=== PATIENT | male | born 1935 | race Caucasian/White ===

== ENCOUNTER 2019-04-20 23:13 | Outpatient (CLI) | payer MEDICARE, OTHER | END 2019-04-20 23:14 | disposition short-term general hospital (02) | LOC: EMS 23:13 | PROVIDERS: ATTEND Surgery | DX: R10.32 Left lower quadrant pain (principal); R05 Cough | CPT/HCPCS: A0425; A0427; A0888 ==

== ENCOUNTER 2021-10-06 09:40 | Outpatient (CLI) | payer MEDICARE, OTHER ==
--- NOTE | 2021-10-06 16:43 | CONSULTATION NOTE ---
Palliative Care Consultation - Referral Referring Provider: Dr. King Jerez Time of Visit: [id number] Referral setting: Home Referral Reason: COPD/Interstital pulmonary Disease/Advanced Care Planning - Information Sources Records reviewed: Previous records reviewed History/Review of Systems obtained from: Patient, Family (spouse, Stephanie) Exam limitations: No limitations - History of Present Illness Brief History of Present Illness: This is a megan and articulate 86-year-old gentleman who was seen and evaluated today in his home for initial palliative care consultation with his spouse, Stephanie present due to COPD, interstitial pulmonary disease and advanced care planning. Provider wore N95 mask. Patient was diagnosed with COPD and pulmonary fibrosis in approximately April 2016. He was having increased shortness of breath and it was noted on bronchoscopy. There is also reports that there is a deposit in his left lower lobe. He grew up in [place] [facility] whether are often dust storms as well as attending college in [place] and this may have been a contributing factor for his diagnoses. The time of diagnosis he then was placed on supplemental oxygen therapy and had been on 2 L for approximately 5 years. Since June 2021 due to increased exercise shortness of breath on exertion he increased to 3 L at rest and will turn up to 4 L with increased activity. He finds it he is more sedentary and is no longer able to do some of the tasks that he has previously enjoyed. He finds that he is getting winded more easily especially when doing self-care tasks such as shaving or bathing where he does not have oxygen in place. He is on Pred minestrone 10 mg daily. He does have a history of intermittent diarrhea which she manages with 1 Imodium daily. He has noted this is increased in his particular certain foods especially tomatoes and potatoes. He defecates on a daily basis and denies abdominal discomfort. Reports that his mood is stable on citalopram 30 mg daily. No changes in his appetite. Patient is seen sitting up in bed with his supplemental oxygen in place, well groomed. Able to speak in full sentences without becoming short of breath. Recent power outage on [facility] did not affect the patient and spouse in regards to his supplemental oxygen as the neighbor has provided a generator for their use. Color Paste Mixing Supervisor: Dr. Fili Lopez Medical/Surgical History - Past Medical History Cardiovascular: reports: High cholesterol, Atrial fibrillation (Paroxysmal Atrial fibrilation), Other (Pulmonary HTN) Respiratory: reports: COPD, Other (Interstitial pulmonary disease) Neuro: None Endocrine/Autoimmune: reports: None GI: reports: Other (Diarrhea) : reports: Benign prostate hypertrophy, Other (CKD stage III) HEENT: reports: Macular degeneration (mild nonexudative age related, OU), Other (Partial retianl artery occlusion OD) Psych: reports: Depression Musculoskeletal: reports: None - Past Surgical History HEENT: reports: Cataracts - Substance History Use: Uses substance without health or social issues: NONE (Former tobacco abuse quit 1997) Social History - Living Situation Living arrangement: At home Living Situation: With spouse/s.o. Support System: The patient and his spouse, Stephanie Will be 59 years in November 2021. They have 3 children together, 1 son and 2 daughters. Their son resides in [place] and will be visiting for [employer]. They have a daughter who resides in [place] and has a masters in art. There her last daughter, and resides in [facility]. 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 He has had former students come in the last year to visit given his declining health. The patient and spouse relocated to [facility] approximately 21 years ago. They have 2 very supportive neighbors who look after them. The patient in enjoys cooking and this is still a pastime he continues to pursue. 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 The couple have a friendly Weimaraner in the home. Family History - Family History Family History: Mother: , Alzheimer's Disease, Father: , [place], Sister: , Alzheimer's Disease Family History Comment/Other: Sister with early onset dementia Medications/Allergies - Medications Home Medications: Ambulatory Orders Medication Instructions Recorded Confirmed Arformoterol Tartrate 1 unit INH BID 10/12/21 10/12/21 Aspirin [Gama] 325 mg PO DAILY 10/12/21 10/12/21 Citalopram Hydrobromide [Celexa] 1.5 tab PO DAILY 10/12/21 10/12/21 Loperamide [Imodium] 1 cap PO DAILY 10/12/21 10/12/21 Revefenacin [Yupelri] 3 ml INH DAILY 10/12/21 10/12/21 Tamsulosin HCl [Flomax] 1 cap PO BID 10/12/21 10/12/21 predniSONE [Deltasone] 10 mg PO DAILY 10/12/21 10/12/21 - Allergies Allergies/Adverse Reactions: Allergies Allergy/AdvReac Type Severity Reaction Status Date / Time No Known Drug Allergies Allergy Verified 10/12/21 20:42 Review of Systems - Constitutional Constitutional: reports: Fatigue. denies: Fever, Poor appetite - Eyes Eyes: reports: Vision loss (right eye), Corrective lenses - Ears, Nose & Throat Ears, Nose & Throat: denies: Dentures - Cardiovascular Cardiovascular: reports: Exertional dyspnea, Decr. exercise tolerance. denies: Edema - Respiratory Respiratory: reports: Cough, SOB with exertion - Gastrointestinal Gastrointestinal: reports: Diarrhea (see HPI), Good appetite. denies: Abdominal pain, Constipation, Vomiting - Genitourinary Genitourinary: denies: Dysuria - Musculoskeletal Musculoskeletal: denies: Joint pain, Assistive devices, Transfer issues - Integumentary Integumentary: reports: Dryness - Neurological Neurological: denies: Headache, Memory problems - Psychiatric Psychiatric: reports: Depression (controlled) - Endocrine Endocrine: denies: Hypothyroidism - All Other Systems All Other Systems: reports: Reviewed and negative Physical Exam - Vital Signs Pulse Rate: 54 O2 Saturation: 94 (3L via NC) Blood Pressure: 127/67 (left wrist) - Physical Exam General Appearance: positive: No acute distress, Alert, Other (thin, well groomed) Eyes Bilateral: positive: Normal inspection, Other (+corrective lenses) ENT: positive: No signs of dehydration. negative: Other (dentures) Neck: positive: Trachea midline, Other (thin) Cardiovascular: positive: Regular rate & rhythm, Systolic murmur (1/6 CARYN) Respiratory: positive: No respiratory distress, Breath sounds nml, Other (supplemented oxygen in place, able to speak in full sentances without pausing for breath) Abdomen: positive: Non-tender, Soft, Nml bowel sounds Skin: positive: Dryness Extremities: positive: No pedal edema Neurologic/Psychiatric: positive: Oriented x3, Mood/affect nml Palliative Care - POLST Patient has POLST: Yes POLST Status: DNR, Comfort Measures Pain: No pain Depression: Mild (1-3) (controlled) Feelings of wellbeing/Perceived Quality of Life: Fair Sleep: Sleeps well Constipation: No Performance Status: Patient is ambulatory without assistive device. Is practicing energy conservation due to decreased exercise tolerance. No history of falls. Able to assist with meal preparation and self-care with bathing and dressing. - Palliative Care Discussion: The patient is appreciating that more mundane tasks such as showering or shaving is contributing to increased energy expenditure resulting in increased fatigue which has been "eye-opening" for him. In the last 6 to 8 weeks he has perceived a loss in his ability to perform tasks such as his gardening that he took great pride and that he is no longer able to perform has he becomes quite fatigued and winded. He and his spouse met with his primary care provider at [facility] from his daughter for a discussion regarding hospice. Given the patient's declining trajectory was deemed most appropriate to be on palliative care services versus hospice at the present time. In reflection regarding hospice services, this is something that both the patient and spouse would wish to transition to when the time is appropriate in the future. The patient perceives time is passing slowly before him and he still finds pleasure in the day. When transitioning to hospice he ultimately wishes to have a comfortable and dignified at home. Impression and Recommendations - Palliative Care Impression: This is a megan 86-year-old gentleman with a history of COPD, interstitial pulmonary disease on supplemental oxygen with increasing functional decline due to his pulmonary diagnoses. He is practicing energy conservation and recognizes his slow decline in his functionality. He wishes to focus on comfort measures within the home environment with a transition to hospice when medically appropriate. Palliative care to provide care coordination, support within the home, symptom management and anticipatory guidance. Recommendations/Counseling Done: 1. COPD/interstitial pulmonary disease.Diagnosed 2016. On supplemental oxygen. Continue to have generator available to insure availably of concentrator use. Continue routine nebulizations as prescribed by form presser. Has had his influenza vaccine. Continue on prednisone 10 mg daily. Patient is aware this is a chronic, progressive illness. 2.Diarrhea. Chronic. Certain foods appear to be a trigger. Discussed taking half an Imodium, 1 mg, before consuming breakfast and dinner when his Imodium capsule runs out. Goal remains to have a bowel movement every other day. 3.Decreased exercise tolerance. Due to underlying COPD/interstitial pulmonary disease. Discussed energy expenditure and energy conservation. Would recommend breaking up tasks. Did discuss decreased exercise tolerance in the setting of pulmonary hypertension diagnosis reviewing pathophysiology and expectations regarding this. Supportive and empathetic listening provided. 4.Advance care planning. Patient has POLST in place is DNA R with comfort measures. He recognize his his decline and it has been eye-opening in recent weeks. He ultimately wishes to have a comfortable and dignified at home with the support of hospice services when the time is appropriate. In the interim, it is appropriate to be supported by palliative care as it is a taxing and difficult effort for the patient to leave his home environment. Total time spent 90 minutes with greater than 50% of this spent in counseling and coronation of care with the patient and spouse; review of palliative and hospice philosophy; review of pathophysiology of COPD, pulmonary hypertension, and interstitial pulmonary disease in the context of the patient's knowledge base; symptom management and advanced care planning. Disclaimer: The chart note was formulated using voice recognition technology and unfortunately sound alike errors may occur.
== END 2021-10-06 09:41 | disposition home or self-care (01) ==
LOC: PC 09:40
PROVIDERS: ATTEND Nurse Practitioner Family
DX: Z51.5 Encounter for palliative care (principal); K52.9 Noninfective gastroenteritis and colitis, unspecified; J44.9 Chronic obstructive pulmonary disease, unspecified; J84.10 Pulmonary fibrosis, unspecified; I27.20 Pulmonary hypertension, unspecified; Z99.81 Dependence on supplemental oxygen; Z87.891 Personal history of nicotine dependence; Z66 Do not resuscitate
CPT/HCPCS: 99345

== ENCOUNTER 2021-10-12 14:30 | Outpatient (CLI) | payer MEDICARE, OTHER ==
--- NOTE | 2021-10-12 20:57 | CONSULTATION NOTE ---
Palliative Care Follow Up - Referral Referring Provider: Dr. King Jerez Time of Visit: [id number] Referral setting: Home Referral Reason: Increased SOB - Information Sources Records reviewed: Previous records reviewed History/Review of Systems obtained from: Patient, Family (spouse, Stephanie) Exam limitations: No limitations - History of Present Illness Update Brief HPI Update: This is a megan 86-year-old gentleman who was seen and evaluated within his home today due to increased shortness of breath, increased sputum and increased cough in the setting of COPD and interstitial pulmonary disease with his spouse, Stephanie present. Provider wore N95 mask. Patient has had a diagnosis of COPD and interstitial pulmonary disease since approximately April 2016 and has been on supplemental oxygen since that time. Approximately 2 days ago the patient and his spouse report that he had been noting increased shortness of breath. He is no longer able to shave and take all his pills at the same time and he finds it extremely taxing effort. He is also having increased shortness of breath ambulating the length of the home which is on a flat surface and not any stairs to navigate and from the bedroom to the kitchen. He will increase his supplemental oxygen from 3 L to 4 L. His cough has increased in the last few days and he is reporting a phlegm that is thick white and then will transition to yellow. He does have a history of COPD exacerbation with the last one approximately 2 to 3 months ago. He is attempti ng to work on energy conservation. He has not checked his pulse oximeter today however, his hands are warmer than their typical baseline. He denies fever or chills. Patient is seen sitting up in bed with supplemental oxygen in place, well groomed and no evidence of acute distress. Remains articulate and engaged. Past Medical History: Patient has past medical history of depression, COPD on supplemental oxygen, CKD stage III, interstitial pulmonary disease, cardiac murmur, pulmonary hypertension, paroxysmal atrial fibrillation, BPH, depression, GERD. + Cova19 vaccine with booster. Social History - Living Situation Living arrangement: At home Living Situation: With spouse/s.o. Support System: The patient and his spouse, Stephanie will be 59 years in November 2021. They have 3 children together, 1 son and 2 daughters. They have 2 very supportive neighbors who look after them. The couple have a friendly Weimaraner in the home. Their son will be visiting for a week from [place] for Thanksgiving as will one of their daughters. Medications/Allergies - Medications Home Medications: Ambulatory Orders Medication Instructions Recorded Confirmed Arformoterol Tartrate 1 unit INH BID 10/12/21 10/12/21 Aspirin [Gama] 325 mg PO DAILY 10/12/21 10/12/21 Citalopram Hydrobromide [Celexa] 1.5 tab PO DAILY 10/12/21 10/12/21 Loperamide [Imodium] 0.5 tab PO BID 10/12/21 10/12/21 Morphine Ir [Ms Ir] 7.5 mg PO Q6H PRN 10/12/21 10/12/21 Revefenacin [Yupelri] 3 ml INH DAILY 10/12/21 10/12/21 Senna [Senokot] 2 tab PO DAILY PRN 10/12/21 10/12/21 Tamsulosin HCl [Flomax] 1 cap PO BID 10/12/21 10/12/21 polyethylene glycoL 3350 [Miralax] 17 g PO DAILY PRN 10/12/21 10/12/21 predniSONE [Deltasone] 10 mg PO DAILY 10/12/21 10/12/21 - Allergies Allergies/Adverse Reactions: Allergies Allergy/AdvReac Type Severity Reaction Status Date / Time No Known Drug Allergies Allergy Verified 10/12/21 20:42 Review of Systems - Constitutional Constitutional: reports: Fatigue, Weight loss. denies: Fever, Chills - Eyes Eyes: reports: Vision loss (right eye) - Ears, Nose & Throat Ears, Nose & Throat: reports: Nasal congestion. denies: Dentures - Cardiovascular Cardiovascular: denies: Edema - Respiratory Respiratory: reports: Cough, Sputum production, SOB with exertion. denies: Wh eezing - Gastrointestinal Gastrointestinal: reports: Diarrhea, Other (Fair appetite). denies: Abdominal pain, Constipation - Musculoskeletal Musculoskeletal: denies: Assistive devices - Integumentary Integumentary: denies: Rash - Neurological Neurological: reports: General weakness - Psychiatric Psychiatric: reports: Depression (controlled) - All Other Systems All Other Systems: reports: Reviewed and negative Physical Exam - Vital Signs Temperature: 37.0 C Pulse Rate: 55 O2 Saturation: 86 (on 3L via NC) Blood Pressure: 141/75 (left wrist) - Physical Exam General Appearance: positive: No acute distress, Alert, Other (well groomed, thin) Eyes Bilateral: positive: Other (+corrective lenses) ENT: positive: No signs of dehydration Neck: positive: Trachea midline Cardiovascular: positive: Regular rate & rhythm, Systolic murmur Respiratory: positive: No respiratory distress, Diminished in bases. negative: Wheezes, Rales Abdomen: positive: Non-tender, Soft, Nml bowel sounds Extremities: positive: No pedal edema Neurologic/Psychiatric: positive: Oriented x3, Mood/affect nml Comments/Other: 94% on 4L via NC at rest Palliative Care - POLST Patient has POLST: Yes POLST Status: DNR, Comfort Measures Pain: No pain - Palliative Care Discussion: Patient is experiencing increased dyspnea on exertion in the setting of increased sputum, increased cough that is indicative of a COPD exacerbation wo uld benefit from oral antibiotic therapy for management in addition to his standard prednisone dose. Would not increase prednisone at the present time as he is not demonstrating decreased air movement. Did discuss at next evaluation we will need to look at obtaining a oxygen concentration that will allow for 5 to 10 L for planning in case the patient needs additional supplemental oxygen and future to support his needs. Advised to keep his pulse ox above 90% moving forward. Due to increased dyspnea and the patient's desire to remain at home and focus on comfort with the transition to hospice services in the future introduced the role of morphine immediate release and utilizing 7.5 mg every 6 hours as needed for shortness of breath to provide vasodilation and improvePulmonary vasculature relief of breathlessness. Patient is open to this trial and reviewed purpose, dose, and side effects at length with the patient and spouse in most particular revolving around constipation and the need for bowel regulation moving forward. Impression and Recommendations - Palliative Care Impression: This is an 86-year-old gentleman with COPD exacerbation in the setting of COPD and interstitial pulmonary disease on supplemental oxygen he would benefit from initiation of oral antibiotic therapy as well as morphine for symptom manage ment. To initiate doxycycline 100 mg taking 1 capsule twice a day x5 days for COPD exacerbation as well as morphine immediate release 15 mg tablet take half a tablet (7.5) every 6 hours as needed for shortness of breath. Is extremely taxing for the patient to leave his home environment and therefore palliative care will continue to follow. Palliative care will continue to provide care coordination, pain and symptom management, anticipatory guidance with a transition to hospice when medically appropriate. Recommendations/Counseling Done: 1. COPD exacerbation. Patient with increased shortness of breath, increased sputum, and increased cough indicative of COPD exacerbation and therefore will initiate oral antibiotic therapy with doxycycline 100 mg taking 1 capsule twice a day x5 days. Continue prednisone 10 mg daily. No need to titrate to higher dose at the present time as patient continues to have air movement 10 no evidence of wheezing on evaluation. Reviewed with patient and spouse desire to keep pulse ox above 90% and titrating supplemental oxygen accordingly. 2. Interstitial lung disease. Chronic. Progressive. Supported by pulmonology. 3.COPD. Chronic. Progressive. On supplemental oxygen. Patient's oxygen saturation 86% on 3 L and titrate up to 4 L with oxygen saturation 94%. Advised to titrate supplemental oxygen to maintain pulse oximeter above 90% and patient aware. Will need to contact [facility] for new oxygen concentrator that will allow for increased liter titration of supplemental oxygen for potential needs in the future to optimize and ensure the patient's comfort. Introduced the role of morphine immediate release 15 mg taking half a tablet 7.5 mg every 6 hours for shortness of breath and relief of breathlessness. Questions answered and addressed with the patient and spouse. Strongly reviewed side effects and potential for constipation with opioid use and reviewed with avoid use of Imodium with use of opioid therapy. Goal is to have a soft bowel movement every other day. Discussed utilization of MiraLAX and senna with titration according to the patient's response and outlined for the patient and spouse. Aware to obtain MiraLAX and senna [id number]. Total time spent 45 minutes with greater than 50% is spent in counseling and coordination of care with the patient and spouse; review of COPD exacerbation and management; examination of patient; review of morphine as a tool in the toolbox and purpose, dose, and side effects; symptom management; and anticipatory guidance. Disclaimer: The chart note was formulated using voice recognition technology and unfortunately sound alike errors may occur.
== END 2021-10-12 14:31 | disposition home or self-care (01) ==
LOC: PC 14:30
PROVIDERS: ATTEND Nurse Practitioner Family
DX: Z51.5 Encounter for palliative care (principal); J44.1 Chronic obstructive pulmonary disease with (acute) exacerbation; J84.9 Interstitial pulmonary disease, unspecified; Z66 Do not resuscitate
CPT/HCPCS: 99349